=== PATIENT | female | born 1980 | race Two or more races ===

== ENCOUNTER 2022-04-14 10:46 | Emergency (ER) | payer MEDICAID ==
[~2022-04-14] VITALS: Ht 162.6 cm; Wt 114.3 kg
[2022-04-14 11:14] VITALS: BP 127/60
[2022-04-14] MEDS ORDERED: KETOROLAC TROMETH 60MG/2ML VIAL IM ONE (11:45)
[2022-04-14] MEDS ORDERED: IBUP800T26 PO (12:21)
== END 2022-04-14 12:24 | disposition home or self-care (01) ==
LOC: ER 10:46
DX: S86.912A Strain of unspecified muscle(s) and tendon(s) at lower leg level, left leg, initial encounter (principal); X50.1XXA Overexertion from prolonged static or awkward postures, initial encounter; Y93.89 Activity, other specified; Y92.89 Other specified places as the place of occurrence of the external cause; Y99.8 Other external cause status
CPT/HCPCS: 96372; 99283; J1885